=== PATIENT | female | born 1935 | race Caucasian/White ===

== ENCOUNTER 2016-08-19 11:07 | Emergency (ER) | payer OTHER ==
--- NOTE | 2016-08-19 11:36 | UCPHY ---
H & P Patient Type: Established Time Seen by Provider: 08/19/16 11:19 HPI/ROS: CHIEF COMPLAINT: Fall HISTORY OF PRESENT ILLNESS: Patient is an 81-year-old female who takes Coumadin for history of mitral valve repair who comes to the Urgent Care after a fall at the [facility]. She is in her bathroom when she felt dizzy and fell. She did hit the right side of her face on the threshold of the walk-in shower. She denies having pain in that region. She denies neck pain. She denies loss of consciousness. She denies chest pain or shortness of breath. She denies palpitations. She did not vomit. No seizure-like activity. She was not incontinent. Her primary complaint is pain and swelling over the left hip. She has been able to ambulate with her cane however like normal. She denies other injuries. REVIEW OF SYSTEMS: Constitutional: denies: chills, fever, recent illness, recent injury EENTM: denies: blurred vision, double vision, nose congestion Respiratory: denies: cough, shortness of breath Cardiac: See HPI denies: chest pain, irregular heart rate, lightheadedness, palpitations Gastrointestinal/Abdominal: denies: abdominal pain, diarrhea, nausea, vomiting, blood streaked stools Genitourinary: denies: dysuria, frequency, hematuria, pain Musculoskeletal: See HPI Skin: denies: lesions, rash, jaundice, bruising Neurological: See HPI denies: headache, numbness, paresthesia, tingling, weakness Hematologic/Lymphatic: denies: blood clots, easy bleeding, easy bruising Immunologic/allergic: denies: HIV/AIDS, transplant EXAM: GENERAL: Well-appearing, well-nourished and in no acute distress. HEAD: Atraumatic, normocephalic. EYES: Pupils equal round and reactive to light, extraocular movements intact, sclera anicteric, conjunctiva are normal. ENT: TMs normal, nares patent, oropharynx clear without exudates. Moist mucous membranes. No malocclusion, no mandible tenderness NECK: Normal range of motion, supple without lymphadenopathy or JVD. LUNGS: Breath sounds clear to auscultation bilaterally and equal. No wheezes rales or rhonchi. HEART: Regular rate and rhythm without murmurs, rubs or gallops. ABDOMEN: Soft, nontender, normoactive bowel sounds. No guarding, no rebound. No masses appreciated. BACK: No CVA tenderness, no spinal tenderness, step-offs or deformities EXTREMITIES: Firm hematoma to left hip, no discoloration. No obvious deformity. No shortening. Normal range of motion, no pitting or edema. No clubbing or cyanosis. NEUROLOGICAL: Cranial nerves II through XII grossly intact. Normal speech, normal gait. 5/5 strength, normal movement in all extremities, normal sensation PSYCH: Normal mood, normal affect. SKIN: Warm, dry, normal turgor, no visible rashes or lesions. Source: Patient Exam Limitations: No limitations - Medical/Surgical History Hx Asthma: No Hx Chronic Respiratory Disease: No Hx Diabetes: No Hx Cardiac Disease: Yes Hx Renal Disease: No Hx Cirrhosis: No Hx Alcoholism: No Hx HIV/AIDS: No Hx Splenectomy or Spleen Trauma: No Other PMH: CARDIAC VALVE REPLACEMENT. GB. TONSILS - Family History Significant Family History: No pertinent family hx - Social History Smoking Status: Never smoked Alcohol Use: Sober Drug Use: None Constitutional: Initial Vital Signs Temperature (C) 36.5 C 08/19/16 11:39 Heart Rate 65 08/19/16 11:39 Respiratory Rate 16 08/19/16 11:39 Blood Pressure 142/75 H 08/19/16 11:39 O2 Sat (%) 92 08/19/16 11:39 O2 Delivery Mode Room Air Allergies/Adverse Reactions: hydrochlorothiazide Allergy (Verified 08/19/16 11:37) Home Medications: Medication Instructions Recorded Coumadin 12/29/15 Atorvastatin Calcium 08/19/16 Furosemide 08/19/16 Lisinopril 08/19/16 Metoprolol Tartrate 08/19/16 Synthroid 08/19/16 VITAMIN D 08/19/16 Medical Decision Making - Diagnostics EKG Interpretation: An EKG obtained and was read and documented in trace view. Please see trace view for full reading and report. Atrial fibrillation with a rate of 67, no acute ischemic changes Imaging: Results: CT scan of the head was obtained. The results of the study are negative. The study was read by Dr. Alin Hogan. I viewed the images myself on the PACS system. Results: CT scan of the pelvis was obtained. The results of the study are negative for acute fractures, left-sided hematoma in subcutaneous fat, does not communicate with bone or muscle. The study was read by Dr. Alin Hogan. I viewed the images myself on the PACS system. X-ray: chest x-ray was obtained. I viewed the images myself on the PACS system. My interpretation of the images is: negative for acute disease . The radiologist interpretation is negative. ED Course/Re-evaluation: Patient initially told me that she does not have atrial fibrillation. An EKG she does. I reviewed her old records in [facility] that does reveal a history of atrial fibrillation/flutter. This would be consistent with her history of heart surgery and Coumadin use. 1:00 p[address] we discussed the CT results which are reassuring. Patient is well appearing and ear to go home. I did offer admission considering her near syncopal event. I am somewhat suspicious of her atrial fibrillation although it is not new. I discussed this with the patient and her son but she again declined admission. She will follow up with her economic geographer Dr. Long. We Discussed indications for returning. 1:40 p.m. I discussed the case with the physician call center assistant [facility]. She is agreeable with this plan and will follow up with the patient. She has been appointment for Monday at 2:00 p.m. at [facility]. Differential Diagnosis: Partial list of the Differential diagnosis considered include but were not limited to; fall, syncope, presyncope, head injury, hip fracture, hematoma, arrhythmia and although unlikely based on the history and physical exam, I also considered cervical spine injury, infection. I discussed these differential diagnoses and the plan with the patient and son as well as the usual and expected course. The patient understands that the diagnosis is provisional and that in medicine we are not always correct and that further workup is often warranted. Usual and customary warnings were given. All of the patient's questions were answered. The patient was instructed to return to the emergency department should the symptoms at all worsen or return, otherwise to followup with the physician as we discussed. - Data Points Laboratory Results: Laboratory Results 08/19/16 12:20 08/19/16 12:20 08/19/16 08/19/16 08/19/16 12:20 12:20 12:20 WBC 7.83 10^3/uL 10^3/uL (3.80-9.50) RBC 4.67 10^6/uL 10^6/uL (4.18-5.33) Hgb 12.7 g/dL g/dL (12.6-16.3) Hct 39.6 % % (38.0-47.0) MCV 84.8 fL fL (81.5-99.8) MCH 27.2 pg L pg (27.9-34.1) MCHC 32.1 g/dL L g/dL (32.4-36.7) RDW 13.8 % % (11.5-15.2) Plt Count 162 10^3/uL 10^3/uL (150-400) MPV 10.6 fL fL (8.7-11.7) Neut % (Auto) 56.5 % % (39.3-74.2) Lymph % (Auto) 22.7 % % (15.0-45.0) [place] % (Auto) 19.2 % H % (4.5-13.0) Eos % (Auto) 0.5 % L % (0.6-7.6) Baso % (Auto) 0.1 % L % (0.3-1.7) Nucleat RBC Rel Count 0.0 % % (0.0-0.2) Absolute Neuts (auto) 4.42 10^3/uL 10^3/uL (1.70-6.50) Absolute Lymphs (auto) 1.78 10^3/uL 10^3/uL (1.00-3.00) Absolute Monos (auto) 1.50 10^3/uL H 10^3/uL (0.30-0.80) Absolute Eos (auto) 0.04 10^3/uL 10^3/uL (0.03-0.40) Absolute Basos (auto) 0.01 10^3/uL L 10^3/uL (0.02-0.10) Absolute Nucleated RBC 0.00 10^3/uL 10^3/uL (0-0.01) Immature Gran % 1.0 % % (0.0-1.1) Immature Gran # 0.08 10^3/uL 10^3/uL (0.00-0.10) PT 23.6 SEC H SEC (12.0-15.0) INR 2.13 H (0.83-1.16) APTT 38.2 SEC H SEC (23.0-38.0) Sodium 142 mEq/L mEq/L (134-144) Potassium 4.0 mEq/L mEq/L (3.5-5.2) Chloride 100 mEq/L mEq/L (97-110) Carbon Dioxide 31 mEq/l mEq/l (22-31) Anion Gap 11 mEq/L mEq/L (8-16) BUN 15 mg/dL mg/dL (7-23) Creatinine 0.6 mg/dL mg/dL (0.6-1.0) Estimated GFR > 60 Glucose 90 mg/dL mg/dL (70-100) Calcium 9.4 mg/dL mg/dL (8.5-10.4) Departure - Departure Disposition: Home, Routine, Self-Care Clinical Impression: Hematoma, Pre-syncope Fall Qualifiers: Encounter type: initial encounter Qualified Code(s): W19.XXXA - Unspecified fall, initial encounter Condition: Fair Instructions: Near Syncope (ED), Fall Prevention (ED), Hematoma (ED) Additional Instructions: You have a follow-up appointment with the [place] [facility] provider Debra Booth at 2 :00 p.m. on Monday the 23 of August. If you develop any lightheadedness or fainting symptoms between now and return to the emergency department. Referrals: Berna Pham MD [Primary Care Provider] - As per Instructions - PQRS PQRS Measurement: 134: Depression screening and followup, PRIME MD-PHQ2 (12 years and older) Over the last 2 weeks, how often have you been bothered by any of the following problems? 1. Feeling down, depressed, or hopeless? 2. Little interest or pleasure in doing things? Patient answered no to both 1 and 2 130: Documentation of medications. Reviewed all patient medications, doses, route and frequency. 226: Do you smoke? No. 47: 65 and older: Advanced care planning. Patient designates surrogate decision maker as spouse . Patient has advanced directive. 51: 18 years old and older with diagnosis of COPD, spirometry performance. Spirometry not performed; equipment not available. 52: 18 years old and older with COPD and symptoms of COPD or FEV1<60% predicted prescribed a B Agonist. Not applicable
--- NOTE | 2016-08-19 11:43 | CPEKG ---
Heart Rate: 67 RR Interval: 896 QRSD Interval: 102 QT Interval: 448 QTC Interval: 473 QRS [place]: -20 T Wave [place]: 152 EKG Severity - ABNORMAL ECG - EKG Impression: ATRIAL FIBRILLATION, V-RATE 57-74 EKG Impression: PROBABLE LVH WITH SECONDARY REPOL ABNRM Electronically Signed By: Antoine Forrester 19-Aug-2016 11:46:07
[2016-08-19 11:47] VITALS: RESP 16; TEMP 97.7; O2SAT 92
[2016-08-19 12:27] LABS: ABSOLUTE IMMATURE GRANULOCYTES 0.08 10^3/uL (0.00-0.10); ADD DIFF? NO; ADD MORPH? NO; ADD SCAN? NO; ATYPICAL LYMPHOCYTE FLAG 10 (0-99); FRAGMENT RBC FLAG 0 (0-99); HEMATOCRIT 39.6 % (38.0-47.0); HEMOGLOBIN 12.7 g/dL (12.6-16.3); LEFT SHIFT FLG 0 (0-99); LIPEMIA HEMOLYSIS FLAG 80 (0-99); MEAN CELL HEMOGLOBIN 27.2 pg (27.9-34.1); MEAN CELL HEMOGLOBIN CONCENTR. 32.1 g/dL (32.4-36.7); MEAN CELL VOLUME 84.8 fL (81.5-99.8); MEAN PLATELET VOLUME 10.6 fL (8.7-11.7); PLATELET CLUMPS FLAG 0 (0-99); PLATELET COUNT 162 10^3/uL (150-400); RED BLOOD CELL COUNT 4.67 10^6/uL (4.18-5.33); RED CELL DISTRIBUTION WIDTH 13.8 % (11.5-15.2)
[2016-08-19 12:41] LABS: INR 2.13 (0.83-1.16); PROTIME(PATIENT) 23.6 SEC (12.0-15.0)
[2016-08-19 12:42] LABS: APTT 38.2 SEC (23.0-38.0)
[2016-08-19 12:47] LABS: ANION GAP 11 mEq/L (8-16); CALCIUM 9.4 mg/dL (8.5-10.4); CARBON DIOXIDE 31 mEq/l (22-31); CHLORIDE 100 mEq/L (97-110); CREATININE 0.6 mg/dL (0.6-1.0); GLOMERULAR FILTRATION RATE > 60; GLUCOSE 90 mg/dL (70-100); SODIUM 142 mEq/L (134-144)
[2016-08-19 14:12] VITALS: BP 141/79; PULSE 67
== END 2016-08-19 14:08 | disposition home or self-care (01) ==
LOC: CED 11:07
DX: S70.02XA Contusion of left hip, initial encounter (principal); R55 Syncope and collapse; W19.XXXA Unspecified fall, initial encounter; Z95.4 Presence of other heart-valve replacement
CPT/HCPCS: 70450; 71020; 72192; 93005; G0463; 80048-PO; 85025-PO; 85610-PO; 85730-PO

== ENCOUNTER → 2016-08-31 | Outpatient (CLI) | payer OTHER | LOC: BHFA 14:45 | PROVIDERS: ATTEND Internal Medicine Cardiovascular Disease | DX: I48.91 Unspecified atrial fibrillation (principal); I25.10 Atherosclerotic heart disease of native coronary artery without angina pectoris ==